=== PATIENT | male | born 1975 | race African-American/Black ===

== ENCOUNTER 2017-01-31 20:00 | Inpatient (IN) | payer MEDICARE, OTHER ==
--- NOTE | ~2017-01-31 | PA ---
Unit #: [id number] #: [id number] Patient: SILVER MOYA [id number] [facility] [address] [place] [address] [id number] MR#: [id number] NAME: SILVER MOYA ROOM: 76 Age: 41 Sex: M Admission Date: 01/31/2017 : 1975 Date of Assessment: Attending Physician: Michael Moya M.D. Admitting Physician: Michael Moya M.D. PSYCHIATRIC ASSESSMENT INFORMANTS Patient, reliable; OLOP, reliable. CHIEF COMPLAINT Alcohol detox. HISTORY OF PRESENT ILLNESS Mr. Moya is a 41-year-old man, who reports he cannot stop shaking despite ongoing alcohol use and has begun to hallucinate. He had difficulty with functioning in his outpatient setting stating he had been drinking a fifth of vodka daily. He did not feel suicidal, but feels that he would from the effects of drinking. He was admitted for detox and stabilization. PAST PSYCHIATRIC HISTORY Last admission was in 2012 at this facility. The patient has been an alcoholic since his late adolescence. FAMILY PSYCHIATRIC HISTORY The patient's father was also an alcoholic. SOCIAL HISTORY The patient is single and lives with a girlfriend, whose son has been causing some conflict. He is on long-term disability from medical problems. PAST MEDICAL HISTORY Significant for hepatitis B and hepatitic cirrhosis of the liver, history of pancreatitis, history of kidney and liver failure. MEDICATIONS Please see MAR. ALLERGIES No known medication allergies. SUBSTANCE USE HISTORY As noted, the patient has an extensive history of alcohol dependence. MENTAL STATUS EXAMINATION Mr. Moya presented as a neatly groomed man, who appeared his stated age. He was cooperative with the examination. His speech was terse, but easily understood. Musculoskeletal examination demonstrated mild psychomotor Unit #: [id number] #: [id number] Patient: SILVER MOYA agitation. His mood was anxious with a flat affect. He was alert and fully oriented. His memory and concentration were fair. His thought processes were goal directed and he reported visual hallucinations frequently throughout the day. He had no suicidal ideation, intent, or plan. Insight and judgment were fair. Fund of knowledge and abstraction were fair. ASSETS AND LIABILITIES The patient presents voluntarily for treatment and knows local resources. Liabilities include long-term difficulty with sobriety maintenance. ADMITTING DIAGNOSES AXIS I: Alcohol dependence with withdrawal, uncomplicated, F10.230. AXIS II: No diagnosis. AXIS III: Alcohol withdrawal syndrome. History of hepatitis with cirrhosis. AXIS IV: AXIS V: PSYCHIATRIC PLAN The patient was admitted and placed on the alcohol detox protocol. We will determine his home medications by contacting his Pharmacy and restart them as indicated. He will enroll in dual diagnosis groups and activities, and a physical examination and laboratory studies will be ordered and reviewed. TREATMENT GOALS Resolution of detox symptomatology, improvement in insight, and improvement in coping skills. DISCHARGE PLANNING Follow up with [facility]. ESTIMATED LENGTH OF STAY 5 days. Dictated by... Michael Moya M.D. REI/jose TD: 02/01/2017 13:38 JOB #: [id number] PSYCHIATRIC ASSESSMENT Page 1 of 1 X Michael Moya MD X PSYCHIATRIC ASSESSMENT
--- NOTE | ~2017-01-31 | DS ---
Unit #: [id number] #: [id number] Patient: SILVER MOYA [id number] [facility] [address] [place] [address] [id number] MR#: [id number] NAME: SILVER MOYA ROOM: [facility] Age: 41 Sex: M Admission Date: 01/31/2017 : 1975 Discharge Date: 02/02/2017 Attending Physician: Michael Moya M.D. DISCHARGE SUMMARY REASON FOR ADMISSION Mr. Moya is a 41-year-old man, who reported ongoing alcohol use with complicated withdrawal symptoms including mild hallucinations and shakiness. He had no suicidal ideation, intent, or plan, and was admitted for detox. LABORATORY DATA Please see referring hospital records. HOSPITAL COURSE The patient was admitted and placed on the alcohol detox protocol. He had a brief period of inpatient detox with no delirium, confusion, and minimal reports of hallucinations or other issues. The following day, the patient continued to report that he was free of suicidal ideation and stated he wished to return home. I encouraged him to stay for a longer period of detox, but the patient was insistent and was not eligible for involuntary hospitalization. He was discharged at his request. DISCHARGE DIAGNOSES AXIS I: Alcohol dependence with withdrawal, uncomplicated. AXIS II: No diagnosis. AXIS III: Alcohol withdrawal syndrome. Hepatitis with cirrhosis. AXIS IV: AXIS V: DISCHARGE INSTRUCTIONS Follow up with primary care physician and alcoholics anonymous. DISCHARGE MEDICATIONS None. CONDITION AT DISCHARGE Fair. PROGNOSIS Fair to good. DIET Ad marcial. ACTIVITY Ad marcial. Unit #: [id number] #: [id number] Patient: SILVER MOYA Dictated by... Zac Pinon/jose TD: 02/02/2017 14:11 JOB #: [id number] DISCHARGE SUMMARY Page 1 of 1 X Michael Moya MD X DISCHARGE SUMMARY
--- NOTE | ~2017-01-31 | HP ---
Unit #: [id number] #: [id number] Patient: SILVER MOYA [id number] [place] [address] [id number] MR#: [id number] NAME: SILVER MOYA ROOM: P176 Age: 41 Sex: M Admission Date: 01/31/2017 : 1975 Attending Physician: Michael Moya M.D. Admitting Physician: Michael Moya M.D. Primary Care Physician: Primary Care Physician No HISTORY AND PHYSICAL HISTORY OF PRESENT ILLNESS Silver is a 41-year-old male admitted on 01/31/2017 to [facility] for detox from alcohol. PAST MEDICAL HISTORY 1. Chronic pancreatitis. 2. Cirrhosis of the liver. 3. Kidney disease. PAST SURGICAL HISTORY 1. Cholecystectomy. 2. Umbilical hernia. SOCIAL HISTORY No tobacco or illegal drug use. Does report (1) __. He is currently single and living alone. FAMILY HISTORY (2) __. REVIEW OF SYSTEMS CONSTITUTIONAL: No fever or chills. HEENT: Denies any sore throat, ear pain or runny nose. CARDIOVASCULAR: Denies chest pain, irregular heart rhythm or palpitations. CHEST: Denies shortness of breath or cough. No hemoptysis. GASTROINTESTINAL: Denies nausea, vomiting, diarrhea or chronic constipation. ENDOCRINE: Denies history of increased thirst or urination. No recent significant weight loss or gain. GENITOURINARY: Denies dysuria, frequency, or hematuria. SKIN: Denies any rashes. HEMATOLOGIC: Denies history of increased bleeding or bruising. MUSCULOSKELETAL: Denies any hot, swollen joints. No generalized muscle pain. NEUROLOGIC: Denies problems with vision or speech. No frequent, severe headaches. No numbness, tingling or weakness in any extremities. Denies loss of bladder or bowel control. CURRENT MEDICATIONS Seroquel. ALLERGIES No known drug allergies. Unit #: [id number] #: [id number] Patient: SILVER MOYA PHYSICAL EXAMINATION GENERAL: Alert, oriented, no acute distress. VITAL SIGNS: Blood pressure 171/124, heart rate 76. HEIGHT: 5 feet 7. WEIGHT: 134 pounds. SKIN: Warm, dry. No rashes or lesions, track hull, cuts, etc. HEENT: Normocephalic. TMs not viewed. Oronasal passages clear. Conjunctivae clear. PERRLA. EOM is intact. NECK: No lymphadenopathy or thyromegaly. HEART: Regular rate and rhythm. No murmur, gallop, or rub. LUNGS: Clear to auscultation bilaterally. ABDOMEN: Soft, nontender without palpable masses or hepatosplenomegaly. : Not assessed. EXTREMITIES: No evidence of cyanosis, clubbing, or edema. Moves all extremities independently without obvious deficit. NEUROLOGICAL: Grossly within normal limits. Cranial Nerves: II: Visual malik are intact. III, IV AND : Extraocular movements are intact. Pupils are equal, round and reactive to light. V: Facial sensation is grossly normal. VII: Facial movements and expression are normal. VIII: Auditory acuity grossly intact. IX, X: Uvula is midline. Phonation is normal. XI: Patient shrugs shoulders and turns head normally. XII: Tongue protrudes in the midline. Sensory and Motor Function: Sensory and motor sensation is grossly normal. Motor: moves all extremities well. Coordination: Gait is normal. Deep Tendon Reflexes: Intact. IMPRESSION 1. Psychiatric admission. 2. Chronic pancreatitis. 3. Cirrhosis of the liver. 4. Kidney disease. RECOMMENDATIONS PSYCHIATRIC: Per psychiatrist. MEDICAL: No contraindication to participate in this facility's activities. MEDICAL PROGNOSIS Good. MEDICAL CONDITION Stable. Dictated by... Janel Shafer/rodney TD: 02/01/2017 15:10 JOB #: [id number] Unit #: [id number] #: [id number] Patient: SILVER MOYA HISTORY AND PHYSICAL Page 1 of 1 X FAVIAN GOODMAN APRN HISTORY AND PHYSICAL
[~2017-01-31 20:00] MED LIST: CERTAGEN PO; FAMOTIDINE PO
[2017-02-02 12:04] LABS: AMPHETAMINE NEG (NEG); BARBITURATES NEG (NEG); BENZODIAZEPINES POS (NEG); COCAINE NEG (NEG); MARIJUANA POS (NEG); OPIATES NEG (NEG); TRICYCLIC ANTIDEPRESSANTS POS (NEG); U METHADONE NEG (NEG)
== END 2017-02-02 11:59 | disposition home or self-care (01) | DRG 897 ==
LOC: P1E 22:23
PROVIDERS: Psychiatry & Neurology Psychiatry
PROC: HZ2ZZZZ Detoxification Services for Substance Abuse Treatment (ICD-10-PCS; principal; 2017-01-31)
DX: F10.239 Alcohol dependence with withdrawal, unspecified (principal); K70.30 Alcoholic cirrhosis of liver without ascites; Z81.1 Family history of alcohol abuse and dependence
CPT/HCPCS: 80307